=== PATIENT | male | born 1995 | race African-American/Black ===

== ENCOUNTER 2022-11-13 06:33 | Outpatient (CLI) | payer OTHER | END 2022-11-13 23:59 | disposition critical access hospital (66) | LOC: EMS 06:33 | DX: M43.6 Torticollis (principal); M79.662 Pain in left lower leg; M79.661 Pain in right lower leg; V53.5XXA Driver of pick-up truck or van injured in collision with car, pick-up truck or van in traffic accident, initial encounter; Y92.413 State road as the place of occurrence of the external cause | CPT/HCPCS: A0425; A0429 ==

== ENCOUNTER 2022-11-13 06:57 | Emergency (ER) | payer OTHER ==
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
[2022-11-13 07:38] VITALS: BP 153/97
== END 2022-11-13 07:23 | disposition home or self-care (01) ==
LOC: ED 06:57
DX: S16.1XXA Strain of muscle, fascia and tendon at neck level, initial encounter (principal); V89.2XXA Person injured in unspecified motor-vehicle accident, traffic, initial encounter; Y93.89 Activity, other specified; Y92.410 Unspecified street and highway as the place of occurrence of the external cause
CPT/HCPCS: 99281; 99283